=== PATIENT | female | born 1960 | race Caucasian/White ===

== ENCOUNTER 2025-07-21 14:51 | Emergency (ER) | payer MEDICARE, SELFPAY ==
[2025-07-21] VITALS (10 sets, daily range): BP systolic 157–199; BP diastolic 66–88; PULSE 58–80; RESP 12–20; TEMP 36.6–36.7; O2SAT 97–100
--- NOTE | ~2025-07-21 | XR_ITS ---
EXAMINATION: XR chest 2V 07/21/2025 15:29 INDICATION: Bilateral breast and back pain PROCEDURE: 2 views chest COMPARISON: No prior studies for comparison. FINDINGS: The lungs are clear. The cardiomediastinal silhouette is within normal limits. There are no pleural effusions. There is no pneumothorax suspected. IMPRESSION: 1: NO ACUTE CARDIOPULMONARY DISEASE. Reviewed, dictated and finalized at location O.
--- NOTE | ~2025-07-21 | CT_ITS ---
EXAMINATION: CTA chest PE abdomen pel DATE: 07/21/2025 17:09 CDT INDICATION: Right epigastric/chest pain to breast and the back TECHNIQUE: Computed tomographic angiography (CTA) of the chest, abdomen, and pelvis was performed with intravenous contrast. The dose-length product was 496.30 mGy-cm. Maximum intensity projection 3D-reconstructions of the aorta and other arteries were constructed by the technologist on a separate workstation. COMPARISON: None. FINDINGS: CHEST CTA: No enlarged mediastinal or hilar lymph nodes. There are a few nonenlarged recital hilar lymph nodes. Heart is unenlarged. Thoracic aorta is not aneurysmal is partially calcified. No thoracic aortic aneurysm. No thoracic aortic dissection. No pneumothorax. No pleural effusion. No focal pulmonary consoli dation. Tracheal bronchial tree is patent. There are small patchy opacities in the lower lungs. There is a 1.1 cm pulmonary nodule in the right lower lobe and a 9 mm spiculated nodule in the left lower lobe. Bones appear osteopenic. Multilevel degenerative change in the visualized spine. There are a few less than 5 mm sclerotic densities scattered throughout the visualized spine. ABDOMEN AND PELVIS CTA: The liver, spleen, adrenal glands and pancreas are unremarkable. Gallbladder is unremarkable. Abdominal aorta is partially calcified but is not aneurysmal. No abdominal aortic dissection. No abdominal aortic aneurysm. There are a few too small to characterize low-attenuation lesions in the kidneys. The kidneys are otherwise unremarkable. No enlarged lymph nodes in the abdomen. No free fluid in the abdomen. No enlarged lymph nodes in the pelvis. Bladder is unremarkable. Small amount of nonspecific fluid in the pelvis. Moderate amount of stool in the nondilated large bowel. Mild diverticulosis in the sigmoid colon. No acute appendicitis. No dilated bowel loops. Abdominal degenerative changes visualized spine was prominent at the L4 L5 S1 level. IMPRESSION: 1. No CT evidence for a thoracic aortic dissection or aneurysm. 2. No CT evidence for an abdominal aortic dissection or aneurysm. 3. There is a 1.1 cm pulmonary nodule in the right lower lobe and a 9 mm spiculated nodule in the left lower lobe. A PET/CT and/or biopsy is recommended. 4. There are a few less than 5 mm sclerotic lesions scattered throughout the visualized spine. Differential includes bone islands or metastatic lesions. Attention on follow-up PET/CT imaging. Consider a bone scan for further assessment. 5. Small patchy opacities in the lower lungs. Differential includes atelectasis/scarring or infiltrates. 6. Small amount of nonspecific fluid in the pelvis. 7. Mild diverticulosis. Reviewed, dictated and finalized at location Q. IMPRESSION: 1. No CT evidence for a thoracic aortic dissection or aneurysm. 2. No CT evidence for an abdominal aortic dissection or aneurysm. 3. There is a 1.1 cm pulmonary nodule in the right lower lobe and a 9 mm spicul ated nodule in the left lower lobe. A PET/CT and/or biopsy is recommended. 4. There are a few less than 5 mm sclerotic lesions scattered throughout the vi sualized spine. Differential includes bone islands or metastatic lesions. Atten tion on follow-up PET/CT imaging. Consider a bone scan for further assessment. 5. Small patchy opacities in the lower lungs. Differential includes atelectasis /scarring or infiltrates. 6. Small amount of nonspecific fluid in the pelvis. 7. Mild diverticulosis.
--- NOTE | 2025-07-21 14:53 | ECG_ITS ---
Test Date: 2025-07-21 14:57:05 Measurements Intervals [place] Rate: 60 P: 52 ND: 194 QRS: 7 QRSD: 85 T: 43 QT: 398 QTc: 400 Interpretive Statements SINUS RHYTHM DELAYED PRECORDIAL R/S TRANSITION NONSPECIFIC ST-T WAVE ABNORMALITY- INF/LAT LEADS BASELINE ARTIFACT- I, III, AVR, AVL, AVF BORDERLINE ECG No previous ECG available for comparison Electronically Signed On 07-21-2025 15:09:31 CDT by Axel Mtz D.O.
[2025-07-21 15:11] LABS: Hematocrit 40.2 % (37.0-47.0); Hemoglobin 12.8 g/dL (12.0-15.0); Immature Granulocyte Percent A 0.3 % (0-0.5); Lymphocytes Absolute Auto 2.42 K/mm3 (0.9-3.2); Mean Corpuscular HGB Conc 31.8 g/dl (32-36); Mean Corpuscular Hemoglobin 28.7 pg (26-34); Mean Corpuscular Volume 90.1 fl (80-100); Nucleated Red Blood Cells Absolute Auto 0.000 K/mm3 (0.0-0.012); Nucleated Red Blood Cells Perc 0.0 % (0.0-0.2); Platelet Count Result 223 k/mm3 (150-375); Red Blood Count 4.46 M/mm3 (4.2-5.4); White Blood Count 5.9 K/mm3 (4.5-10.0)
[2025-07-21 15:21] LABS: INR 1.0; Prothrombin Time 13.4 Seconds (11.1-14.7)
[2025-07-21 15:22] LABS: Partial Thromboplastin Time 30.9 Seconds (22.3-36.8)
[2025-07-21 15:26] LABS: Alanine Aminotransferase 24 U/L (6-35); Albumin Level 4.5 g/dL (3.5-5.1); Alkaline Phosphatase 75 U/L (38-126); Anion Gap 7 mmol/L (4-12); Aspartate Amino Transferase 44 U/L (14-36); Bilirubin,Total 0.3 mg/dL (0.2-1.3); Blood Urea Nitrogen 12 mg/dL (7-17); Calcium 9.0 mg/dL (8.4-10.2); Carbon Dioxide 27 mmol/L (22-30); Chloride 105 mmol/L (98-107); Estimated CRCL calculation 47 ml/min; Estimated Glomerular Filt Rate > 60; Glucose 93 mg/dL (65-110); Lipase 56 U/L (23-300); Potassium 3.9 mmol/L (3.4-5.0); Sodium 139 mmol/L (137-145); Total Protein 7.3 g/dL (6.3-8.2)
[2025-07-21 15:36] LABS: Troponin I < 0.012 ng/mL (0.000-0.034)
[2025-07-21] MEDS: ASPIRIN 81 MG CHEWABLE TABLET 324 MG PO (15:51)
--- NOTE | 2025-07-21 16:47 | ED.GENADULT ---
HPI - General Adult General Chief complaint: Chest Pain Stated complaint: CP and back pain since yesterday Time Seen by Provider: 07/21/25 15:43 History of Present Illness HPI narrative: This is a 64-year-old female sent in the ED by her primary care physician for chest pain. Patient says she woke up yesterday morning with achy pain in the epigastric area radiating beneath her right breast into her back. It is associated with shortness of breath when she leans over but none at rest or with exercise. She denies fevers productive cough or chest pain. No history of DVT/PE. No weakness to any extremity. No unintentional weight loss. Related Data Home Medications ?Medication ?Instructions ?Recorded ?Confirmed ?Last Taken ?Type benazepril 40 mg tablet 40 mg PO DAILY 07/21/25 07/21/25 Unknown History cholecalciferol (vitamin D3) 10 400 unit PO DAILY 07/21/25 07/21/25 Unknown History mcg (400 unit) capsule pravastatin 40 mg tablet 40 mg PO DAILY 07/21/25 07/21/25 Unknown History Allergies Allergy/AdvReac Type Severity Reaction Status Date / Time No Known Allergies Allergy Unverified 07/21/25 15:25 [facility] Past Medical History Medical History (Updated 07/21/25 @ 18:47 by Clifton Sorensen MD) Chest pain (~07/20/25) Constipation Chronic low back pain with left-sided sciatica Personal history of tobacco use 1 pack daily for 20 years with patient quitting 2014. Peripheral vascular disease of lower extremity BMI 25.0-25.9,adult Mixed hyperlipidemia Essential hypertension Family History Family History (Updated 07/21/25 @ 13:21 by Maddy Macias MA) Mother Diabetes mellitus Hypertension Thyroid disorder Father Cancer Grandparent Diabetes mellitus Social History Social History (Updated 07/21/25 @ 13:59 by Maddy Macias MA) Smoking status: Former smoker Alcohol intake: current Alcohol use details: rarely Substance use: never Substance use type: does not use Exam Narrative: APPEARANCE: No apparent distress. Head: atraumatic. EYES: EOMI, NOSE: Atraumatic NECK: Trachea midline RESPIRATORY: No increased rate of breathing clear to auscultation CARDIOVASCULAR: RRR, no peripheral edema ABDOMINAL: Non-distended soft nontender MUSCULOSKELETAl: No obvious deformities NEURO: Alert. Moving 4/4 extremities SKIN:: Warm, dry. Normal color PSYCHIATRIC: Normal affect Course Vital Signs Vital signs: Vital Signs Temperature 98.1 F 07/21/25 15:05 Pulse Rate 58 L 07/21/25 15:05 Respiratory Rate 20 07/21/25 15:05 Blood Pressure 158/72 H 07/21/25 15:05 Pulse Oximetry 100 07/21/25 15:05 Oxygen Delivery Room Air 07/21/25 15:05 Temperature 98.1 F 07/21/25 15:05 Pulse Rate 61 07/21/25 15:24 Respiratory Rate 16 07/21/25 15:23 Blood Pressure 161/71 H 07/21/25 15:23 Pulse Oximetry 99 07/21/25 15:23 Oxygen Delivery Room Air 07/21/25 15:05 Medical Decision Making MDM Narrative Medical decision making narrative: -Course: 64-year-old female presenting for epigastric pain radiating under her right breast and into her back. CTA negative for vascular pathology. However it showed a spiculated 9 mm nodule in the left lower lobe and a 11 mm nodule in the right lower lobe. There also possible sclerotic bony lesions. These results were discussed with the patient and her I have stressed the importance of following up with our oncologist Dr. Parra. On re-evaluation patient is resting comfortably in bed. Her vital signs are stable. The rest of her workup was unremarkable including EKG, troponins basic laboratory studies. She will be discharged follow-up with oncology for further management. Given return precautions if she develops any new symptoms such as chest pain shortness of breath fevers. -DDX includes but is not limited to: PE, dissection, pneumonia, pneumothorax, ACS Vital Signs Vital Signs: Vital Signs Temperature 98.1 F 07/21/25 15:05 Pulse Rate 58 L 07/21/25 15:05 Respiratory Rate 20 07/21/25 15:05 Blood Pressure 158/72 H 07/21/25 15:05 Pulse Oximetry 100 07/21/25 15:05 Oxygen Delivery Room Air 07/21/25 15:05 Temperature 98.1 F 07/21/25 15:05 Pulse Rate 61 07/21/25 15:24 Respiratory Rate 16 07/21/25 15:23 Blood Pressure 161/71 H 07/21/25 15:23 Pulse Oximetry 99 07/21/25 15:23 Oxygen Delivery Room Air 07/21/25 15:05 Lab Data 07/21/25 15:04 07/21/25 15:04 Labs: Lab Results 07/21/25 07/21/25 Range/Units 15:04 18:04 WBC 5.9 (4.5-10.0) K/mm3 RBC 4.46 (4.2-5.4) M/mm3 Hgb 12.8 (12.0-15.0) g/dL Hct 40.2 (37.0-47.0) % MCV 90.1 (80-100) fl MCH 28.7 (26-34) pg MCHC 31.8 L (32-36) g/dl RDW 13.1 (11.5-14.5) % Plt Count 223 (150-375) k/mm3 MPV 11.3 H (7.4-10.4) fl Immature Gran % (Auto) 0.3 (0-0.5) % Neut % (Auto) 47.6 (45.5-73.1) % Lymph % (Auto) 41.3 (18.3-44.2) % [place] % (Auto) 8.4 (2.6-8.5) % Eos % (Auto) 1.5 (0-4.4) % Baso % (Auto) 0.9 (0.2-1.2) % Lymph # (Auto) 2.42 (0.9-3.2) K/mm3 [place] # (Auto) 0.5 (0.1-0.6) K/mm3 Eos # (Auto) 0.1 (0-0.3) K/mm3 Baso # (Auto) 0.1 (0.0-0.1) K/mm3 Abs Immat Gran (auto) 0.02 (0.00-0.031) K/mm3 Absolute Neuts (auto) 2.8 (1.3-6.7) K/mm3 Absolute Nucleated RBC 0.000 (0.0-0.012) K/mm3 Nucleated RBC % 0.0 (0.0-0.2) % PT 13.4 (11.1-14.7) Seconds INR 1.0 APTT 30.9 (22.3-36.8) Seconds Sodium 139 (137-145) mmol/L Potassium 3.9 (3.4-5.0) mmol/L Chloride 105 (98-107) mmol/L Carbon Dioxide 27 (22-30) mmol/L Anion Gap 7 (4-12) mmol/L BUN 12 (7-17) mg/dL Creatinine 0.81 (0.7-1.0) mg/dL Estim Creat Clear Calc 47 ml/min Estimated GFR > 60 (59 - ) Glucose 93 (65-110) mg/dL Calcium 9.0 (8.4-10.2) mg/dL Total Bilirubin 0.3 (0.2-1.3) mg/dL AST 44 H (14-36) U/L ALT 24 (6-35) U/L Alkaline Phosphatase 75 (38-126) U/L Troponin I < 0.012 < 0.012 (0.000-0.034) ng/mL Total Protein 7.3 (6.3-8.2) g/dL Albumin 4.5 (3.5-5.1) g/dL Lipase 56 (23-300) U/L Discharge Plan Discharge Clinical Impression: Lung mass, Atypical chest pain Patient Disposition: Home Condition: Stable Instructions: Antibiotic Form, Chest Pain (ED), Needle Biopsy of the Lung (DC) Additional Instructions: You were seen emergency department for chest pain. Your CT showed 2 lung masses that need to be further evaluated by an oncologist. Please call Dr. Parra's office tomorrow morning to arrange close follow-up in 7-10 days. It is unclear if these are the cause of your chest pain or not so please return to ED if you develop fevers, worsening chest pain shortness of breath or any new symptoms. Patient Language: Welsh Prescriptions: No Action pravastatin 40 mg tablet 40 mg PO DAILY benazepril 40 mg tablet 40 mg PO DAILY cholecalciferol (vitamin D3) 10 mcg (400 unit) capsule 400 unit PO DAILY coenzyme Q10 200 mg capsule 200 mg PO DAILY Qty: 30 0RF Follow-up/Referrals: Mike Parra MD [Physician, Hematology] - 1 Day Referral Note: New lung mass Myles Giron MD [Primary Care Provider, Family Practice]
[2025-07-21 18:48] LABS: Troponin I < 0.012 ng/mL (0.000-0.034)
== END 2025-07-21 19:31 | disposition home or self-care (01) ==
PROVIDERS: Emergency Provider Emergency Medicine; PCP Family Medicine
DX: R07.89 Other chest pain (principal); R91.8 Other nonspecific abnormal finding of lung field; E78.5 Hyperlipidemia, unspecified; I10 Essential (primary) hypertension; G89.29 Other chronic pain
CPT/HCPCS: 36415; 71046; 71275; 74177; 80053; 83690; 84484; 85025; 85610; 85730; 93005; 99284; A9270; Q9967

== ENCOUNTER 2025-09-08 01:18 | Day surgery (SDC) | payer MEDICARE, SELFPAY ==
--- OUTSIDE RECORDS SUMMARY | 2021-07-20 03:10 | XMS_ITS | Continuity of Care Document ---
Author Organization [facility] Address [address] [place] [address] Phone Care Team Providers Care Frit Burner Name Role Phone Dinh Chaparro DO Unavailable Unavailable Allergies, Adverse Reactions, Alerts Substance Reaction Status Criticality No Known Allergies Active No Inform ation Medications Medication Instructions Dosage Effective Dates (start - stop) Status Comments atorvastatin 10 mg tablet take as directed - Active benazepril 40 mg tablet take as directed - Active Procedures Procedure Date INJECTION, TRANSFORAMINAL, EPIDURAL, LUM AR OR SACRAL, SINGLE OFFICE/OUTPATIENT VISIT, EST INJECTION, TRANSFORAMINAL, EPIDURAL, LUM AR OR SACRAL, SINGLE OFFICE/OUTPATIENT VISIT, EST MRI LUMBAR SPINE W/O DYE XRAY L-S SPINE, 2-3 VIEWS OFFICE/OUTPATIENT VISIT, EST XRAY ANKLE, 3+ VIEWS POSTOP FOLLOW-UP VISIT ASO ANKLE GAUNTLET XRAY ANKLE, 3+ VIEWS POSTOP FOLLOW-UP VISIT Walking Boot, Pneumatic, OTS Distal Fibular Fx, Lateral Malleolus ClT x W/o Manipulation CAST SUPPLIES SHORT LEG SPLINT ADULT YENNY STER XRAY ANKLE, 2 VIEWS Advance Directives Directive Yes / No Effective Date File Name No Information Encounters Encounter Description Practice Location Reason(s) For Visit Diagnoses Date Provider Providers Copied on Encounter [facility], [address] [place], [address], [place] tel:[phone] [facility] No Information 1 Shankar Tao. [address], [place], [id number], [place]. tel:[phone] OFFICE/OUTPA TIENT VISIT, EST [facility], [address] [place], [address], [place] tel:[phone] [facility] lumbar spine pain (chief complaint) Spinal stenosis, lumbar region with neurogenic claudicationT rochanteric bursitis, right hipTrochanter ic bursitis, left hip 1 Giovanna Owens. [address], [place], [id number], [place]. tel:[phone] [facility], [address] [place], [address], [place] tel:[phone] [facility] No Information 1 Elvin Veloz. [address], [place], [id number], [place]. tel:[phone] OFFICE/OUTPA TIENT VISIT, EST [facility], [address] [place], [address], [place] tel:[phone] [facility] lumbar spine (chief complaint) Spinal stenosis, lumbar region with neurogenic claudication 1 Giovanna Owens. [address], [place], [id number], [place]. tel:[phone] [facility], [address] [place], [address], [place] tel:[phone] MRI [facility] No Information 1 Giovanna Owens. [address], [place], [id number], [place]. tel:[phone] Referring Provider: Roman Heredia, [address] [place], [address] . tel:[phone] OFFICE/OUTPA TIENT VISIT, EST [facility], [address] [place] [address], [address], [place] tel:[phone] [facility] lumbar spine pain (chief complaint) Osteoarthriti s of spine with radiculopathy , lumbar region 1 Giovanna Owens. [address], [place], [id number], [place]. tel:[phone] [facility], [address] [place] [address], [address], [place] tel:[phone] [facility] fracture RT (chief complaint) Other fracture of upper and lower end of right fibula, subsequent encounter for closed fracture with routine healing 9 No Information Referring Provider: Claudio Madrid MD, [address] [facility] [address], [place], [address]. tel:[phone] [facility], [address] [place] [address], [address], [place] tel:[phone] [facility] Fernando No Information 9 No Information [facility], [address] [place] [address], [address], [place] tel:[phone] [facility] [place] fracture (chief complaint) Other fracture of upper and lower end of right fibula, subsequent encounter for closed fracture with routine healing 9 No Information Referring Provider: Claudio Madrid MD, [address] [facility] [address], [place], [address]. tel:[phone] [facility], [address] [place] [address], [address], [place] tel:[phone] [facility] [place] No Information 9 No Information [facility], [address] [place] [address], [address], [place] tel:[phone] [facility] right ankle pain (chief complaint) Other closed fracture of distal end of right fibula, initial encounter No Information Referring Provider: Claudio Madrid MD, [address] [facility] [address], [place], [address]. tel:[phone] Family History Family Member Type Diagnosis Age At Onset Problem (finding) Family history of Cance r, unknown Problem (finding) Family history of Diabe preston mellitus Problem (finding) Family history of Blood disorder Payers Payer name Insurance type Covered constitution party ID Authoriza tilucille(s) BCBS No Specified Network [id number] Social History Type Description Quantity Date Captured Comments Sex Female Smoking Status No Information Chief Complaint And Reason For Visit No Information Reason For Referral Reason For Referral No Information Plan Of Treatment Date Type Action Status Goal Tobacco cessation counseling completed Referral Referred To: Walking Boot Pneumatic, OTS Ordered: Referrals: Walking Boot Pneumatic, OTS ordered History Of Present Illness Encounter Date Complaint History Of Prese nt Illness lumbar spine pain Gloria preciado is a 60 year old female. She presents with pain. Patient presents to the clinic to follow up after injections. The symptoms occur intermittently. The problem is unchanged. The symptoms occur at night. The patient is experiencing pain in the following location: lower back. She also reports additional pain in the left leg. She rates her worst pain as 10/10. She rates her current pain as 0/10. The symptoms are aggravated by sitting. Patient states the injection gave her pain relief for only 3-4 days. lumbar spine Gloria Odell is a 60 year old female. She presents with pain. The symptoms occur intermittently. The pain is described as aching. She rates her current pain as 0/10. She is here to go over MRI results. lumbar spine pain Gloria preciado is a 60 year old female. She presents with pain on the left side. The patient is experiencing pain in the following location: lower back on the left side. She also reports additional pain in the leg on the left side. She rates her current pain as 8/10. The symptoms are aggravated by sitting. Gloria states that the symptoms are relieved by no specific activity. She denies having any associated symptoms. fracture RT The patient repo rts status as improving. The patient's pain score is 0/10. The pain is intermittent. She is not taking any pain medication The patient is not using any assistive devices. She denies bruising, nighttime awakening, numbness, popping, spasms, stiffness and swelling. fracture The patient repo rts status as improving. The patient's pain score is 0/10. The pain is intermittent. She is not taking any pain medication The patient is non-weight bearing. The patient is not using any assistive devices. The patient's activity level is needs moderate assist. There are no associated symptoms. There are no pertinent negatives. Patient was treated by casting. The patient reports no complications of cast. right ankle pain Gloria roa is a 58 year old female. She presents with pain on the right side. She states that the symptoms have been acute traumatic and began on 05/21/2019. Gloria states that the symptoms began as the result of a fall. The symptoms occur constantly. Currently the patient states that the symptoms are moderate. The pain is described as throbbing. She rates her current pain as 7/10. The symptoms are aggravated by movement. Gloria states that the symptoms are relieved by rest. Functional Status Date Functional Assessmen t No Information Instructions Date Instruction Additional Infor mation No Information Assessments Type Assessment Date No Information Patient Care Teams Name Effective Dates (start - stop) Status Members No Information
[2025-08-31 11:11] VITALS: BMI 25.0
--- OUTSIDE RECORDS SUMMARY | 2025-09-08 01:21 | XMS_ITS | Clinical Summary ---
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 Active pravastatin (PRAVACHOL) 40 mg tablet Take 40 mg by mouth daily with supper. Active CALCIUM CARBONATE-VITAMI N D3 ORAL Take by mouth. Active Active Problems No known active problems Encounters Date Type Department Care Team Description 08/24/2025 4:30 PM CDT Telephone Check Up [facility] Oncology and [facility] [address] [place] [address] Mike Parra MD Malignant neoplasm of lower lobe of right lung (CMS/HCC) (Primary Dx); Lung nodule 08/20/2025 7:22 AM CDT - 08/20/2025 11:59 PM CDT Hospital Encounter [facility] Services [facility] [address] [place] [id number] Mike Parra MD Discharge Disposition: Home or Self Care 08/18/2025 External Device Data STL ABSTRACTION Provider, Abstract 08/18/2025 External Device Data STL ABSTRACTION Provider, Abstract 08/18/2025 External Device Data STL ABSTRACTION Provider, Abstract 08/13/2025 9:45 AM CDT Office Visit [facility] Oncology and [facility] [address] [place] [address] Mike Parra MD Malignant neoplasm of lower lobe of right lung (CMS/HCC) (Primary Dx) from Last 3 Months Family History Medical History Relation Name Comments Diabetes Brother No Known Problems Child Lung Cancer Father Diabetes Mother Hypertension Mother Relation Name Status Comments Brother Alive Child Alive Father Mother Social History Tobacco Use Types Packs/Day Years Used Date Smoking Tobacco: Former Cigarettes 1 25 0 11/26/1990 - 11/26/2015 Smokeless Tobacco: Never Alcohol Use Standard Drinks/Week Comments Yes 0 (1 standard drink = 0.6 oz pur e alcohol) Socially Comments Unknown Sex and Gender Information Value Date Recorded Sex Assigned at Not on file Legal Sex Female 1:12 PM CDT Gender Identity Not on file Sexual Orientation Not on file Last Filed Vital Signs Vital Sign Reading Time Taken Comments Blood Pressure 184/76 08/13/2025 9:15 AM CDT Pulse 67 08/13/2025 9:12 AM CDT Temperature 36.9 C (98.4 F) 08/13/2025 9:12 AM CDT Respiratory Rate 15 08/13/2025 9:12 AM CDT Oxygen Saturation 95% 08/13/2025 9:12 AM CDT Inhaled Oxygen Concentration - - Weight 64.2 kg (141 lb 9.6 oz) 08/13/2025 9:12 A M CDT Height 160 cm (5' 3) 08/13/2025 9:12 AM CDT Body Mass Index 25.08 08/13/2025 9:12 AM CDT Plan of Treatment Upcoming Encounters Date Type Department Care Team (Late st Contact Info) Description 02/23/2026 11:00 AM CDT Office Visit [facility] Oncology and Hematology - [place] [address] [facility] [address] [place] [address] Mike Parra MD [address] [facility] [address] [place] [address] Health Maintenance Due Date Last Done Comments Pre-Diabetes and Diabetes Screening 1960 DTAP/TDAP/TD VACCINES (1 - Tdap) 1977 BREAST CANCER SCREENING 1998 COLORECTAL SCREENING 2003 Colorectal Cancer Screening 2003 FIT-DNA Q 3 years 2003 FIT/FOBT Q 1 year 2003 Flex Sig/CT Colonography Q 5 years 2003 PNEUMOCOCCAL VACCINE 50+ YEARS (1 of 1 - PCV) 09/17/20 08 ZOSTER VACCINE (1 of 2) 2008 OSTEOPOROSIS SCREENING 2023 INFLUENZA VACCINE (#1) 2025 RSV VACCINE (60+ or ) (1 - 1-dose 75+ series) 2033 Procedures Procedure Name Priority Date/Time Associated Diagnosis Comments PET TUMOR OR INFECTION IMG W CT SKB MDTH Stat 08/20/2025 9:24 AM CDT Malignant neoplasm of lower lobe of right lung (CMS/HCC) POC GLUCOSE Routine 08/20/2025 7:59 AM CDT from Last 3 Months Results * PET TUMOR OR INFECTION IMG W CT SKB MDTH (08/20/2025 9:24 AM CDT) Anatomical Region Laterality Modality Positron Emissio n Tomography (PET) 08/20/2025 9:25 AM CDT Impressions 08/20/2025 9:50 AM CDT IMPRESSION: 1. Right lower lobe pulmonary nodule with metabolic activity less than blood pool. While this may represent a benign entity, a low-grade adenocarcinoma could have a similar appearance. If clinically indicated, consider annual CT chest follow-up. 2. Left lower lobe pulmonary nodule without significant metabolic activity. DICTATION LOCATION: Location [address] [place] [address] 08/20/2025 9:50 AM CDT EXAMINATION: PET TUMOR OR INFECTION IMG W CT SKB MDTH DATE: 08/20/2025 9:24 AM REFERRING PHYSICIAN: MIKE PARRA HISTORY: Lung nodule, > 8mm; Malignant neoplasm of lower lobe of right lung (CMS/HCC) Evaluate for initial treatment strategy. WEIGHT: 141 pounds HEIGHT: 5 feet 3 inches TECHNIQUE: 10.1 mCi of F-18 FDG by IV in the right hand. PET/CT image acquisition from the head to the mid thighs after 61 minutes post-injection with the CT being low-dose, non-contrast. No separate report for the CT was generated since it was of non-diagnostic quality. Blood glucose level at the time of injection was 82 mg/dL. COMPARISON: No prior study is available for comparison at the time of this dictation. FINDINGS: For reference, SUV max of the mediastinum is 2.3. SUV max of the liver is 2.9. Head and neck: No abnormal FDG uptake is seen in the brain. There are no significantly FDG avid or enlarged cervical lymph nodes. Chest: The aorta and main pulmonary artery are normal in caliber. There is no evidence of coronary artery calcification. No abnormal FDG uptake is seen in the lungs. The lungs are clear of focal consolidation. No pleural effusion is identified. There is no evidence of pneumothorax. 1.1 cm right upper lobe pulmonary nodule (series 4, image 103) with FDG avidity less than blood pool and maximum SUV of 1.9. 0.9 cm left lower lobe pulmonary nodule without significant associated FDG avidity. The heart size is normal. No lymphadenopathy is seen. Abdomen and pelvis: No suspicious hepatic lesion. The gallbladder appears normal. The bile ducts are nondilated. The spleen, pancreas, and adrenal glands appear normal. The kidneys are normal in size. There is no evidence of renal calculus or hydronephrosis. There is no evidence of bowel wall thickening or obstruction. No free air or free fluid is identified within the abdomen. There is no abdominopelvic lymphadenopathy. Musculoskeletal: No suspicious bone lesion is seen. No abnormal FDG uptake is seen in the osseous structures. Procedure Note Rad Jones MD - 08/20/2025 EXAMINATION: PET TUMOR OR INFECTION IMG W CT SKB [facility] DATE: 08/20/2025 9:24 AM REFERRING PHYSICIAN: MIKE PARRA HISTORY: Lung nodule, > 8mm; Malignant neoplasm of lower lobe of right lung (CMS/HCC) Evaluate for initial treatment strategy. WEIGHT: 141 pounds HEIGHT: 5 feet 3 inches TECHNIQUE: 10.1 mCi of F-18 FDG by IV in the right hand. PET/CT image acquisition from the head to the mid thighs after 61 minutes post-injection with the CT being low-dose, non-contrast. No separate report for the CT was generated since it was of non-diagnostic quality. Blood glucose level at the time of injection was 82 mg/dL. COMPARISON: No prior study is available for comparison at the time of this dictation. FINDINGS: For reference, SUV max of the mediastinum is 2.3. SUV max of the liver is 2.9. Head and neck: No abnormal FDG uptake is seen in the brain. There are no significantly FDG avid or enlarged cervical lymph nodes. Chest: The aorta and main pulmonary artery are normal in caliber. There is no evidence of coronary artery calcification. No abnormal FDG uptake is seen in the lungs. The lungs are clear of focal consolidation. No pleural effusion is identified. There is no evidence of pneumothorax. 1.1 cm right upper lobe pulmonary nodule (series 4, image 103) with FDG avidity less than blood pool and maximum SUV of 1.9. 0.9 cm left lower lobe pulmonary nodule without significant associated FDG avidity. The heart size is normal. No lymphadenopathy is seen. Abdomen and pelvis: No suspicious hepatic lesion. The gallbladder appears normal. The bile ducts are nondilated. The spleen, pancreas, and adrenal glands appear normal. The kidneys are normal in size. There is no evidence of renal calculus or hydronephrosis. There is no evidence of bowel wall thickening or obstruction. No free air or free fluid is identified within the abdomen. There is no abdominopelvic lymphadenopathy. Musculoskeletal: No suspicious bone lesion is seen. No abnormal FDG uptake is seen in the osseous structures. IMPRESSION: 1. Right lower lobe pulmonary nodule with metabolic activity less than blood pool. While this may represent a benign entity, a low-grade adenocarcinoma could have a similar appearance. If clinically indicated, consider annual CT chest follow-up. 2. Left lower lobe pulmonary nodule without significant metabolic activity. DICTATION LOCATION: [address] Mike Parra MD PE ORDERABLES Final Result * POC GLUCOSE (08/20/2025 7:59 AM CDT) GLUCOSE POC 82 74 - 99 mg/dL 08/20/2025 7:59 AM CDT [facility] - [facility] SPECIMEN SOURCE, GLUCOSE POC Whole Blood 08/20/2025 7:59 AM CDT [facility] - [facility] Blood, whole 08/20/2025 7:59 AM CDT 08/20/2025 8:11 AM CDT Mike Parra MD POINT OF CARE TESTING Final Res ult [facility] - [facility] [address][id number] [address] [place] [address] from Last 3 Months Insurance MEDICARE PART A AND B [place] SUPP MEDICARE PART A AND B [email or web address] SUPP
[2025-09-08 12:03] VITALS: BP 140/71; PULSE 70; RESP 18; TEMP 36.5; O2SAT 100
[2025-09-08] MEDS: LACTATED RINGERS 1,000 ML 150 ML IV CONT (12:19)
--- NOTE | 2025-09-08 12:48 | PM.HPGS ---
History of Present Illness History of Present Illness Consent: Risks, benefits, and alternatives have been discussed and questions answered. Patient agrees to proceed with procedure. Chief complaint: Screening,Nausea Narrative: Gloria Odell is a 64 year old female with abdominal fullness here for egd, last colonoscopy about 5 years ago and needs another one Review of Systems Review of Systems: All systems reviewed & are unremarkable except as noted in HPI and below PMFSH Past Medical History Medical History (Updated 09/08/25 @ 12:50 by Rad Aleman MD) Abdominal fullness Colon cancer screening Pulmonary nodule 1 cm or greater in diameter 1.1 cm right lower lobe pulmonary nodule and 0.9 cm spiculated left lower lobe nodule with scattered sclerotic bone lesions in the spine on CT a of the chest and abdomen ER on 07/21/2025. Chest pain (~07/20/25) Atypical chest pain treated in the ER 07/21/2025. Constipation Chronic low back pain with left-sided sciatica Personal history of tobacco use 1 pack daily for 20 years with patient quitting 2014. Peripheral vascular disease of lower extremity BMI 25.0-25.9,adult Mixed hyperlipidemia Essential hypertension Family History Family History (Updated 07/21/25 @ 13:21 by Maddy Macias MA) Mother Diabetes mellitus Hypertension Thyroid disorder Father Cancer Grandparent Diabetes mellitus Social History Social History (Updated 07/21/25 @ 13:59 by Maddy Macias MA) Smoking packs per day: 1 Smoking cigarettes per day: 20.0 Smoking status: Former smoker Alcohol intake: current Alcohol use details: 1 month Substance use: never Substance use type: does not use Living arrangements: with family Spiritual care concerns: No Meds Home Medications and Allergies Home Medications ?Medication ?Instructions ?Recorded ?Confirmed ?Type benazepril 40 mg tablet 40 mg PO DAILY 07/21/25 08/31/25 History cholecalciferol (vitamin D3) 10 400 unit PO DAILY 07/21/25 08/31/25 History mcg (400 unit) capsule pravastatin 40 mg tablet 40 mg PO DAILY 07/21/25 08/31/25 History duloxetine 30 mg capsule,delayed 30 mg PO DAILY #30 caps 07/28/25 08/31/25 Rx release meloxicam 15 mg tablet 15 mg PO DAILY PRN pain #30 tabs 07/28/25 08/31/25 Rx bisacodyl 5 mg tablet,delayed 5 mg PO HS 08/31/25 08/31/25 History release (Dulcolax (bisacodyl)) coenzyme Q10 200 mg capsule 100 mg PO DAILY 08/31/25 08/31/25 History restless leg 1 tablet BYMOUTH HS 08/31/25 08/31/25 History total beets BYMOUTH DAILY 08/31/25 History Allergies Allergy/AdvReac Type Severity Reaction Status Date / Time No Known Allergies Allergy Verified 09/08/25 12:02 Vital Signs Vital Signs - 24 hr 09/08/25 12:03 Temperature 97.7 F Pulse Rate 70 Respiratory Rate 18 Blood Pressure 140/71 Pulse Oximetry 100 Oxygen Delivery Room Air Exam Const: General: comfortable and no acute distress HENMT: Face/Nose/Sinus: Normal nares present Eyes: General: appearance normal, both eyes and all related structures Resp: Auscultation: clear to auscultation bilaterally Cardio: Rate: regular rate Rhythm: regular rhythm GI: Inspection: non-distended GI Palp: Yes Soft to palpation Skin: General skin exam: normal color Extrem: General: normal to inspection Psych: Mental Status: mental status grossly normal Assessment and Plan Assessment and plan (1) Abdominal fullness: Code(s): R19.8 - Other specified symptoms and signs involving the digestive system and abdomen Status: Acute Assessment and Plan: egd (2) Colon cancer screening: Code(s): Z12.11 - Encounter for screening for malignant neoplasm of colon Status: Acute Assessment and Plan: colonoscopy
--- NOTE | 2025-09-08 12:50 | WPDANESEPPF ---
Anes - Initial Pre Proc Eval Procedure: Operation Date: 09/08/25 13:30 Proposed Procedures p Screening Colonoscopy - Rad Aleman MD s Esophagogastroduodenoscopy EGD - Rad Aleman MD Date/Time: 09/08/25 12:50 Surgeon: Rad Aleman MD Pre Op Diagnosis: Screening,Nausea Patient Data Age: 64 Gender: F Height: 1.6 m Weight: 63.3 kg Last Vital Signs Temp 36.5 C 09/08/25 12:03 Pulse 70 09/08/25 12:03 Resp 18 09/08/25 12:03 BP 140/71 09/08/25 12:03 Pulse Ox 100 09/08/25 12:03 O2 Del Method Room Air 09/08/25 12:03 Allergies Allergy/AdvReac Type Severity Reaction Status Date / Time No Known Allergies Allergy Verified 09/08/25 12:02 Home Medications ?Medication ?Instructions ?Recorded ?Confirmed ?Type benazepril 40 mg tablet 40 mg PO DAILY 07/21/25 08/31/25 History cholecalciferol (vitamin D3) 10 400 unit PO DAILY 07/21/25 08/31/25 History mcg (400 unit) capsule pravastatin 40 mg tablet 40 mg PO DAILY 07/21/25 08/31/25 History duloxetine 30 mg capsule,delayed 30 mg PO DAILY #30 caps 07/28/25 08/31/25 Rx release meloxicam 15 mg tablet 15 mg PO DAILY PRN pain #30 tabs 07/28/25 08/31/25 Rx bisacodyl 5 mg tablet,delayed 5 mg PO HS 08/31/25 08/31/25 History release (Dulcolax (bisacodyl)) coenzyme Q10 200 mg capsule 100 mg PO DAILY 08/31/25 08/31/25 History restless leg 1 tablet BYMOUTH HS 08/31/25 08/31/25 History total beets BYMOUTH DAILY 08/31/25 History Patient hx anesthesia problems: none Family hx anesthesia problems: none Results Review: All pre-operative results and documents have been reviewed as part of the pre-operative evaluation. [facility] Past Medical History Medical History Colon cancer screening Pulmonary nodule 1 cm or greater in diameter 1.1 cm right lower lobe pulmonary nodule and 0.9 cm spiculated left lower lobe nodule with scattered sclerotic bone lesions in the spine on CT a of the chest and abdomen ER on 07/21/2025. Chest pain (~07/20/25) Atypical chest pain treated in the ER 07/21/2025. Constipation Chronic low back pain with left-sided sciatica Personal history of tobacco use 1 pack daily for 20 years with patient quitting 2014. Peripheral vascular disease of lower extremity BMI 25.0-25.9,adult Mixed hyperlipidemia Essential hypertension Family History Family History Mother Diabetes mellitus Hypertension Thyroid disorder Father Cancer Grandparent Diabetes mellitus Social History Social History Smoking packs per day: 1 Smoking cigarettes per day: 20.0 Smoking status: Former smoker Alcohol intake: current Alcohol use details: 1 month Substance use: never Substance use type: does not use Living arrangements: with family Spiritual care concerns: No Anes - Eval Final PreProcedure Day of Procedure 09/08/25 12:50 Patient weight: normal Heart: regular rate and rhythm Lungs: normal air movement Airway: Mallampati scale class II Neurological: alert and oriented Last oral intake: >/= 8 hours ASA classification: III Emergent: no Anesthetic plan: proceed Anesthesia type and monitoring: general GIVS and standard monitoring Results Review: All pre-operative results and documents have been reviewed as part of the pre-operative evaluation. Informed Consent: The patient's anesthetic plan and its attendant risks and benefits were discussed with the patient/family/POA. Questions were solicited and answers provided to the satisfaction of the patient/family/POA.
--- NOTE | 2025-09-08 13:02 | SUR.OPER ---
EGD [id number]. Colonoscopy start time 1307.
--- NOTE | 2025-09-08 13:16 | S_PTH ---
PATIENT: Gloria Odell LOC: [facility] Wu#:[id number] AGE/SX: 64/F ROOM: RE09/08/[address]: Rad Aleman MD : 1960 BED: DIS: 09/08/2025 SPEC #: [id number] RECD: 09/08/25 13:24 STATUS: MARI BHANDARI #: [id number] JAEL: 09/08/25 13:[address]: Rad Aleman DEPT: [facility] Surgical RECD BY: Karen Ma ENTERED: 09/08/25 13:25 SP TYPE: Surgical OTHR DR: Myles Giron MD Tissues: A - Small Bowel Bx B - Gastric Biopsy Procedures: Hematoxylin and Eosin Stain Gross and Microscopic Level 4
[2025-09-08 13:18] VITALS: BP 108/57; PULSE 66; RESP 15; O2SAT 99
[2025-09-08 13:28] VITALS: BP 123/70; PULSE 60; RESP 18; O2SAT 100
[2025-09-08 13:38] VITALS: BP 140/73; PULSE 64; RESP 16; O2SAT 100
== END 2025-09-08 13:52 | disposition home or self-care (01) ==
PROVIDERS: PCP Family Medicine; Referring Provider Family Medicine; Visit Provider Internal Medicine Gastroenterology
PROC: 0DJD8ZZ Inspection of Lower Intestinal Tract, Via Natural or Artificial Opening Endoscopic (ICD-10-PCS; CPT 45378; principal; 2025-09-08 13:30)
PROC: 0DJ08ZZ Inspection of Upper Intestinal Tract, Via Natural or Artificial Opening Endoscopic (ICD-10-PCS; CPT 43239; 2025-09-08 13:30)
DX: Z12.11 Encounter for screening for malignant neoplasm of colon (principal); K64.8 Other hemorrhoids; K57.30 Diverticulosis of large intestine without perforation or abscess without bleeding; R19.8 Other specified symptoms and signs involving the digestive system and abdomen; K31.89 Other diseases of stomach and duodenum; E78.2 Mixed hyperlipidemia; I10 Essential (primary) hypertension; I73.9 Peripheral vascular disease, unspecified; G89.29 Other chronic pain; M54.42 Lumbago with sciatica, left side; Z87.891 Personal history of nicotine dependence; Z80.9 Family history of malignant neoplasm, unspecified
CPT/HCPCS: 43239; G0105; 88305; J2003; J2704; J7120